=== PATIENT | female | born 1975 | race Caucasian/White ===

== ENCOUNTER 2019-08-17 10:43 | Emergency (ER) | payer OTHER ==
[~2019-08-17] VITALS: Ht 172.7 cm; Wt 124.7 kg
[~2019-08-17 10:43] MED LIST: KETO10TA2 PO
[2019-08-17] MEDS ORDERED: METRONIDAZOLE500 MG PO (18:12)
[2019-08-17] MEDS ORDERED: PEPCID AC20 MG PO (18:12)
[2019-08-17] MEDS ORDERED: DICY20TA PO (18:12)
== END 2019-08-17 19:25 | disposition home or self-care (01) ==
LOC: ER 10:43
DX: K52.89 Other specified noninfective gastroenteritis and colitis (principal)

== ENCOUNTER 2019-12-19 18:30 | Emergency (ER) | payer OTHER ==
[~2019-12-19] VITALS: Ht 172.7 cm; Wt 127.0 kg
[~2019-12-19 18:30] MED LIST changes: +DICY20TA PO; +METRONIDAZOLE500 MG PO; +PEPCID AC20 MG PO
[2019-12-19] MEDS ORDERED: COZAAR50 MG (18:45)
== END 2019-12-19 20:02 | disposition home or self-care (01) ==
LOC: ER 18:30
DX: R07.89 Other chest pain (principal)

== ENCOUNTER 2020-02-13 15:36 | Emergency (ER) | payer OTHER ==
[~2020-02-13] VITALS: Ht 172.7 cm; Wt 127.0 kg
[~2020-02-13 15:36] MED LIST changes: +COZAAR50 MG
== END 2020-02-13 18:53 | disposition home or self-care (01) ==
LOC: ER 15:36
DX: S83.8X1S Sprain of other specified parts of right knee, sequela (principal); X58.XXXS Exposure to other specified factors, sequela; R07.89 Other chest pain

== ENCOUNTER → 2020-07-03 | Outpatient (CLI) | payer OTHER | END | disposition home or self-care (01) | LOC: RAD 10:05 | PROVIDERS: ATTEND Physical Medicine & Rehabilitation | DX: M17.11 Unilateral primary osteoarthritis, right knee (principal); Z20.828 Contact with and (suspected) exposure to other viral communicable diseases ==

== ENCOUNTER → 2020-09-23 | Emergency (ER) | payer OTHER ==
[~2020-09-23] VITALS: Ht 172.7 cm; Wt 81.6 kg
== END | disposition left against medical advice (07) ==
LOC: ER 13:54
DX: S00.03XA Contusion of scalp, initial encounter (principal); W22.8XXA Striking against or struck by other objects, initial encounter; Y93.89 Activity, other specified; Y92.098 Other place in other non-institutional residence as the place of occurrence of the external cause; Y99.8 Other external cause status

== ENCOUNTER 2020-09-24 08:30 | Outpatient (CLI) | payer OTHER | END 2020-09-24 08:40 | disposition home or self-care (01) | LOC: RAD 08:30 | PROVIDERS: ATTEND Emergency Medicine | DX: N83.292 Other ovarian cyst, left side (principal); M48.32 Traumatic spondylopathy, cervical region; R92.2 Inconclusive mammogram; D25.9 Leiomyoma of uterus, unspecified ==

== ENCOUNTER 2020-10-03 14:51 | Outpatient (CLI) | payer OTHER | END 2020-10-03 14:56 | disposition home or self-care (01) | LOC: MAMO-SONO 14:51 | DX: N83.292 Other ovarian cyst, left side (principal); Z12.31 Encounter for screening mammogram for malignant neoplasm of breast; N64.59 Other signs and symptoms in breast; D25.9 Leiomyoma of uterus, unspecified ==

== ENCOUNTER 2022-06-19 12:43 | Emergency (ER) | payer OTHER ==
[~2022-06-19] VITALS: Ht 172.7 cm; Wt 124.7 kg
[2022-06-19] MEDS ORDERED: COZAAR100 MG PO (13:28)
[2022-06-19] MEDS ORDERED: MEDROLPACK PO (17:04)
== END 2022-06-19 17:43 | disposition home or self-care (01) ==
LOC: ER 12:43
DX: M72.2 Plantar fascial fibromatosis (principal)

== ENCOUNTER 2022-10-05 13:36 | Outpatient (CLI) | payer OTHER ==
[~2022-10-05 13:36] MED LIST changes: +COZAAR100 MG PO; +MEDROLPACK PO
== END 2022-10-05 14:26 | disposition home or self-care (01) ==
LOC: RAD 13:36
DX: Z12.31 Encounter for screening mammogram for malignant neoplasm of breast (principal); Z01.818 Encounter for other preprocedural examination; I10 Essential (primary) hypertension; N39.0 Urinary tract infection, site not specified; D50.9 Iron deficiency anemia, unspecified; M17.11 Unilateral primary osteoarthritis, right knee; M21.061 Valgus deformity, not elsewhere classified, right knee

== ENCOUNTER 2023-02-26 09:52 | Outpatient (CLI) | payer OTHER | END 2023-02-26 10:05 | disposition home or self-care (01) | LOC: SONOGRAMA 09:52 | DX: M79.661 Pain in right lower leg (principal); D17.23 Benign lipomatous neoplasm of skin and subcutaneous tissue of right leg ==

== ENCOUNTER 2023-05-31 09:42 | Outpatient (CLI) | payer OTHER | END 2023-05-31 09:47 | disposition home or self-care (01) | LOC: RX STUDY 09:42 | PROVIDERS: ATTEND Otolaryngology Plastic Surgery within the Head & Neck | DX: R09.89 Other specified symptoms and signs involving the circulatory and respiratory systems (principal) ==

== ENCOUNTER 2023-08-03 16:34 | Outpatient (CLI) | payer OTHER | END 2023-08-03 16:36 | disposition home or self-care (01) | LOC: TOM 16:34 | PROVIDERS: ATTEND Physical Medicine & Rehabilitation | DX: M21.70 Unequal limb length (acquired), unspecified site (principal) ==

== ENCOUNTER 2024-03-09 13:43 | Outpatient (CLI) | payer OTHER | END 2024-03-09 13:52 | disposition home or self-care (01) | LOC: SONOGRAMA 13:43 | DX: M15.0 Primary generalized (osteo)arthritis (principal) ==

== ENCOUNTER 2024-04-21 15:12 | Outpatient (CLI) | payer OTHER | END 2024-04-21 15:13 | disposition home or self-care (01) | LOC: MRI 15:12 | PROVIDERS: ATTEND Anesthesiology | DX: M54.50 Low back pain, unspecified (principal) | CPT/HCPCS: 72148 ==